=== PATIENT | female | born 1965 | race Hispanic/Latino ===

== ENCOUNTER → 2019-06-10 | Outpatient (CLI) | payer OTHER ==
[~2019-06-10] MED LIST: ALLEGRA PO; ESTRADIOL1 MG PO; IOPAMIDOL 370 MG/ML 200 ML INFUS..BTL INJ ONE; NEXIUM40 MG PO; SODIUM CHLORIDE 0.9% 100 ML 100 ML ONE
--- NOTE | 2019-06-10 11:25 | Diagnostic Imaging Report ---
CTA OF THE ABDOMEN, PELVIS AND BILATERAL LOWER EXTREMITIES WITH CONTRAST. INDICATION: Palpitations COMPARISON: None. TECHNIQUE: Abdomen and pelvis were scanned utilizing a multidetector helical scanner from the lung base to the pubic symphysis after administration of IV contrast. Coronal and sagittal reformations were obtained. Multiple reformats were obtained and reviewed. Coronal and sagittal multiplanar, MIP, and 3-D volume-rendering reformations were obtained on a separate workstation under the direct supervision of a Radiologist. RADIATION DOSE: Total DLP: 946.95 mGy*cm Dose modulation, iterative reconstruction, and/or weight based adjustment of the mA/kV was utilized to reduce the radiation dose to as low as reasonably achievable. FINDINGS: Vascular: The abdominal aorta is normal in course and caliber without significant atherosclerotic calcifications. The celiac axis, SMA, bilateral renal arteries, and DOTTY are patent. Single renal arteries noted bilaterally. The bilateral common iliac, external iliac, and internal iliac arteries are patent. Right lower extremity: The right common femoral artery, profunda, and superficial femoral artery are patent without evidence for significant focal stenosis or other abnormality. The popliteal artery is patent and unremarkable. The anterior tibial artery, posterior tibial artery, peroneal artery are patent to level the ankle. Left lower extremity: The left common femoral artery, profunda, and superficial femoral are patent without evidence for significant focal stenosis or other abnormality. The popliteal artery is patent and unremarkable. The anterior tibial artery, posterior tibial artery, and peroneal arteries are patent to the level of the ankle. Nonvascular: The lung bases are grossly clear. The imaged portion of the heart demonstrates no significant abnormalities. The liver is normal in size and attenuation without evidence for focal abnormality. The gallbladder is unremarkable. There is no biliary ductal dilatation. The stomach, spleen, pancreas, and bilateral adrenal glands are unremarkable. The kidneys are normal in size and location concentrate contrast and show properly. There is no evidence of hydronephrosis. The ureters are normal in caliber. The urinary bladder demonstrates no significant abnormalities. The uterus is not visualized and may be surgically absent. No abnormal adnexal masses are identified. Please note evaluation of bowel is limited without the use of enteric contrast material. The visualized loops of small and large bowel demonstrate no evidence of obstruction or inflammation. There is no ascites or intraperitoneal free air. No abnormally enlarged lymph nodes are identified within the abdomen or pelvis. Normal-sized inguinal lymph nodes are noted bilaterally. The osseous structures demonstrate no evidence for acute fracture or destructive process. The soft tissues are unremarkable. IMPRESSION: Unremarkable CTA of the abdominal aorta and bilateral lower extremities with 3 vessel runoff noted bilaterally. Signed by: Dr. Iain Paz MD on 06/10/2019 11:21 AM
== END ==
LOC: CT 09:28
PROVIDERS: ATTEND Internal Medicine Cardiovascular Disease
DX: R00.2 Palpitations (principal)
CPT/HCPCS: 75635; Q9967

== ENCOUNTER 2022-02-18 12:53 | Emergency (ER) | payer OTHER ==
[~2022-02-18] VITALS: Ht 157.5 cm; Wt 78.0 kg
[~2022-02-18 12:53] MED LIST changes: -IOPAMIDOL 370 MG/ML 200 ML INFUS..BTL INJ ONE; -SODIUM CHLORIDE 0.9% 100 ML 100 ML ONE
[2022-02-18 14:31] LABS: BASOPHILS # (AUTO) 0.1 (0.0-0.1); BASOPHILS % 0.6 % (0.0-1.0); EOSINOPHILS # (AUTO) 0.2 (0.0-0.4); EOSINOPHILS % 1.8 % (0.0-6.0); HEMATOCRIT 39.2 % (34.2-44.1); HEMOGLOBIN 12.8 g/dL (12.0-16.0); LYMPHOCYTES # (AUTO) 3.6 (1.0-3.2); LYMPHOCYTES % 37.1 % (18.0-39.1); MEAN CORPUSCULAR HEMOGLOBIN 29.8 pg (28-32); MEAN CORPUSCULAR HGB CONC 32.7 g/dL (31-35); MEAN CORPUSCULAR VOLUME 91.2 fL (81-99); MONOCYTES # (AUTO) 0.7 (0.2-0.8); MONOCYTES % 7.7 % (4.4-11.3); NEUTROPHILS % 52.6 % (38.7-80.0); PLATELET COUNT 310 x10e3/uL (140-360); RED CELL DISTRIBUTION WIDTH 12.7 % (11.7-14.4)
[2022-02-18 14:45] LABS: CLARITY,URINE CLEAR (CLEAR); COLOR,URINE YELLOW (YELLOW); KETONES,URINE NEGATIVE (NEGATIVE); LEUKOCYTE ESTERASE ,URINE NEGATIVE (NEGATIVE); NITRITE,URINE NEGATIVE (NEGATIVE); PROTEIN,URINE DIPSTICK NEGATIVE (NEGATIVE); URINE UROBILINOGEN 0.2 mg/dL (0.2 - 1)
[2022-02-18 14:49] LABS: ALBUMIN 3.9 g/dL (3.5-5.0); ALBUMIN/GLOBULIN RATIO 0.9 (0.8-2.0); ANION GAP 12.9 mmol/L (8-16); CALCIUM 9.5 mg/dL (8.4-10.2); CREATININE, SERUM 0.96 mg/dL (0.57-1.11); POTASSIUM 3.9 mmol/L (3.5-5.1)
[2022-02-18 14:54] LABS: BACTERIA,URINE RARE /HPF; EPITHELIAL CELLS,URINE FEW /LPF; RBC,URINE 0-5 /HPF (0-5); WBC,URINE (MAN) 0-5 /HPF (0-5)
[2022-02-18] MEDS ORDERED: KETOROLAC TROMETHAMINE 30 MG/ML VIAL IV STA (19:05)
[2022-02-18] MEDS ORDERED: KETOROLAC TROMETHAMINE 30 MG/ML VIAL ONE (19:20)
[2022-02-18 19:28] VITALS: BP 130/78
== END 2022-02-18 19:50 | disposition home or self-care (01) ==
LOC: ER 13:18
DX: R10.31 Right lower quadrant pain (principal); N83.202 Unspecified ovarian cyst, left side; E78.5 Hyperlipidemia, unspecified; K76.9 Liver disease, unspecified; F17.210 Nicotine dependence, cigarettes, uncomplicated
CPT/HCPCS: 36415; 74176; 80053; 81001; 85025; 87086; 99283; J1885